=== PATIENT | male | born 1995 | race Caucasian/White ===

== ENCOUNTER 2024-06-23 09:56 | Emergency (ER) | payer BC, SELFPAY ==
[2024-06-23 10:11] VITALS: BP 143/85
--- NOTE | 2024-06-23 10:12 | ED.GENMED ---
ED Provider Triage
<Get Mckeon PA-C - Last Filed: 06/23/24 10:15>
-
Patient seen by provider in Triage?: Seen in Triage
Attestation: A medical screening examination has been initiated by a qualified medical provider. Based on the assessment performed at this time, it has been determined that an emergent medical condition may exist and the patient has been informed
that further medical evaluation and possible additional diagnostic testing may be needed.
HPI: 29-year-old male presents to the emergency department for evaluation of bilateral forearm swelling and discomfort for the past several days. Initially began on the left after performing bicep curls but now has progressed to the right. No
upper arm discomfort, no chest discomfort.
GENERAL: Alert , in no apparent distress
EYE: No visual abnormalities.
NECK: Trachea midline
ENT: No visible abnormalities.
LUNGS: No acute respiratory distress
NEUROLOGICAL: Alert and oriented
SKIN: Skin intact. No visible changes.
MUSCULOSKELETAL: Moving extremities normally
PSYCH: Normal and appropriate interaction.
This is a medical evaluation conducted in person to initiate diagnostic evaluation and provide initial therapeutics. Please see further documentation by the treating clinician.
History of Present Illness
<Get Mckeon PA-C - Last Filed: 06/23/24 10:15>
General
Chief Complaint: Musculo-Skeletal Complaint
Time Seen by Provider: 06/23/24 11:02
<Solis Newton Jr., PA-C - Last Filed: 06/23/24 16:01>
General
Source: patient and family
Exam Limitations: none
Nursing documentation reviewed up to this point in time: agreed with
History of Present Illness
History of Present Illness:
29-year-old male presenting to the emergency department today with concerns of swelling to bilateral upper extremities after working out a few days ago. Initially had mostly swelling throughout the right upper extremity but then now having swelling
to the left side. Denies any trouble urinating no chest pain or shortness of breath. Denies similar symptoms in the past. He has not lifted in a long period of time prior to a recent change.
Past History
<Get Mckeon PA-C - Last Filed: 06/23/24 10:15>
Past History
ED Past Medical History: None
ED Past Surgical History: None
Social History
Tobacco: Smoker
Alcohol: Occasional
Drug: None
Personal:
Living: with family
Employment: Employed
Family History
Family History: Other
Review of Systems
<AVIVA Babin Jr. Last Filed: 06/23/24 16:01>
Review of Systems
Allergies reviewed?: Yes
All Other Systems: ROS reviewed and negative except as documented in HPI and ROS
Phy Exam
<AVIVA Babin Jr. Last Filed: 06/23/24 16:01>
Physical Exam
Physical Exam:
GENERAL: Alert , in no apparent distress
EYE: pupils equal and reactive
NECK: Supple, no significant adenopathy.
ENT: o/p clr, mmm.
CARDIAC: Regular rate and rhythm .
LUNGS: Clear breath sounds bilaterally, no acute respiratory distress, no wheezes/rales/rhonchi
ABDOMEN: Soft, without focal tenderness, no r/g, no cvat
NEUROLOGICAL: Alert and oriented, no focal neuro deficits
SKIN: Warm and dry, skin intact.
MUSCULOSKELETAL: Nonpitting edema throughout the right upper extremity including the right upper arm and right lower arm +1. +1 edema mainly to the left forearm nonpitting. No redness or warmth good range of motion strength normal distal pulses
and cap refill well perfused.
PSYCH: Normal and appropriate interaction.
Course
<AVIVA Tobar Last Filed: 06/23/24 10:15>
Orders/Labs/Results
Orders:
Orders
06/23/24 10:21
CPK [Creatine Phosphokinase] Urgent
Complete Blood Count/With Diff Urgent
Comprehensive Metabolic Panel Urgent
06/23/24 11:28
Venous Doppler Upr Ext Bilat [US Periph Venous UPPER Ext [place]] Urgent
Comment:
Reason For Exam: arm swelling
06/23/24 11:34
0.9% Sodium Chloride 1000 ml [Nss] 1,000 ml IV BOLUS
06/23/24 13:34
0.9% Sodium Chloride 500 ml [Nss] 500 ml IV BOLUS
06/23/24 13:57
Urinalysis Reflex To Culture Urgent
Date Specimen was Collected: 06/23/24
Time Specimen was Collected: 13:33
06/23/24 15:16
CMP [Comprehensive Metabolic Panel] Urgent
Creatine Phosphokinase Urgent
Abnormal Lab Results
06/23/24 06/23/24
10:21 15:16
WBC 3.8 L 10^3/uL
(4.8-10.8)
MPV 10.5 H fL
(7.4-10.4)
Glucose 108 H mg/dl
(70-99)
AST 120 H U/L 106 H U/L
(17-59) (17-59)
ALT 178 H U/L 163 H U/L
(0-50) (0-50)
Creatine Kinase 3526 H U/L 3088 H U/L
(55-170) (55-170)
06/23/24 10:21
06/23/24 15:16
Vital Signs
Initial and Last Documented VS:
Initial Vital Signs
Temp Pulse Resp BP Pulse Ox
98.2 F 75 16 143/85 98
06/23/24 10:11 06/23/24 10:11 06/23/24 10:11 06/23/24 10:11 06/23/24 10:11
Last Documented Vital Signs
Temp Pulse Resp BP Pulse Ox
98.2 F 75 16 143/85 98
06/23/24 10:11 06/23/24 10:11 06/23/24 10:11 06/23/24 10:11 06/23/24 10:11
<Solis Newton Jr., PA-C - Last Filed: 06/23/24 16:01>
Orders/Labs/Results
Orders:
Orders
06/23/24 10:21
CPK [Creatine Phosphokinase] Urgent
Complete Blood Count/With Diff Urgent
Comprehensive Metabolic Panel Urgent
06/23/24 11:28
Venous Doppler Upr Ext Bilat [US Periph Venous UPPER Ext [place]] Urgent
Comment:
Reason For Exam: arm swelling
06/23/24 11:34
0.9% Sodium Chloride 1000 ml [Nss] 1,000 ml IV BOLUS
06/23/24 13:34
0.9% Sodium Chloride 500 ml [Nss] 500 ml IV BOLUS
06/23/24 13:57
Urinalysis Reflex To Culture Urgent
Date Specimen was Collected: 06/23/24
Time Specimen was Collected: 13:33
06/23/24 15:16
CMP [Comprehensive Metabolic Panel] Urgent
Creatine Phosphokinase Urgent
Abnormal Lab Results
06/23/24 06/23/24
10:21 15:16
WBC 3.8 L 10^3/uL
(4.8-10.8)
MPV 10.5 H fL
(7.4-10.4)
Glucose 108 H mg/dl
(70-99)
AST 120 H U/L 106 H U/L
(17-59) (17-59)
ALT 178 H U/L 163 H U/L
(0-50) (0-50)
Creatine Kinase 3526 H U/L 3088 H U/L
(55-170) (55-170)
06/23/24 10:21
06/23/24 15:16
Vital Signs
Initial and Last Documented VS:
Initial Vital Signs
Temp Pulse Resp BP Pulse Ox
98.2 F 75 16 143/85 98
06/23/24 10:11 06/23/24 10:11 06/23/24 10:11 06/23/24 10:11 06/23/24 10:11
Last Documented Vital Signs
Temp Pulse Resp BP Pulse Ox
98.2 F 75 16 143/85 98
06/23/24 10:11 06/23/24 10:11 06/23/24 10:11 06/23/24 10:11 06/23/24 10:11
<Solis Newton Jr., PA-C - Last Filed: 06/23/24 16:01>
MDM/Problems Addressed
MDM/Problems Addressed:
29-year-old male presenting to the emergency department today with concerns of arm swelling after lifting weights few days prior. Did see an orthopedic doctor they recommended an ultrasound has not gotten this at this point. Here does have
swelling to the right arm as well as the left ultrasounds were ordered for further assessment. Labs did show an elevated creatinine kinase likely representing some mild muscle breakdown also does have a transaminitis. Patient started on IV fluids.
Patient given a liter and a half of IV fluids then had labs rechecked with improved numbers. Patient stable for discharge at this time return precautions given.
<Solis Newton Jr., PA-C - Last Filed: 06/23/24 16:01>
*Critical Care Note
Total Time (30-74mins, 75-104mins- exclusive of procedures): Not Applicable
ED Attending Note
<Get Mckeon PA-C - Last Filed: 06/23/24 10:15>
-
Portions of this chart may have been created with voice recognition software.� Occasional wrong word or��sound alike� substitutions may have occurred due to the inherent limitations of voice recognition software.
Discharge Plan
Departure
Patient Disposition: Home (Routine Discharge)
Date of Disposition: 06/23/24
Time of Disposition: 16:00
Patient with high blood pressure during this ER visit?: No
Condition: Good
Covid-19: Not Applicable
Discharge Problem:
Injury of muscle, Elevated creatine kinase, Transaminitis
Instructions: Rhabdomyolysis
Prescriptions:
No Action
No Current Medications
0
Referrals:
David Quintana MD [Family Provider] -
Activity Restrictions/Additional Instructions:
You came to the emergency department today with concerns of swelling after weight lifting. You are found to have an elevated creatine kinase level. This was improving while here after fluids. Please stay very hydrated and also have your labs
repeated with your primary care doctor in the next week or so. Return for any worsening, new or concerning symptoms.
Interventions
Interventions:
*Risk Screen - Suicide Last Done: 06/23/24 10:11
*Neglect/Abuse Screening Last Done: 06/23/24 10:11
ED-Musculoskeletal Assessment Last Done: 06/23/24 12:40
Discharge Date and Time
Print Language: [place]
[2024-06-23 10:27] LABS: % Basophils 0.5 % (0-2); % Eosinophils 1.3 % (0-6); % Immature Granulocytes 0.5 % (0-0.5); % Lymphocytes 39.7 % (20.5-51.1); % Monocytes 6.1 % (1.7-9.3); % Neutrophils 51.9 % (42.2-75.2); Absolute Eosinophils 0.1 10^3/uL (0-0.7); Absolute Lymphocytes 1.5 10^3/uL (1.2-3.4); Absolute Monocytes 0.2 10^3/uL (0.1-0.6); Hematocrit 41.6 % (39.0-52.0); Hemoglobin 14.7 g/dL (13.0-18.0); Mean Corp Hgb Conc. 35.3 g/dL (33.0-37.0); Mean Corpuscular Hgb 30.7 pg (27.0-31.0); Mean Corpuscular Volume 86.8 fL (80.0-94.0); Mean Platelet Volume 10.5 fL (7.4-10.4); Nucleated Red Blood Cells % 0 % (-); Platelet Count 217 10^3/uL (130-400); Red Blood Cell Count 4.79 10^6/uL (4.70-6.10); Red Cell Dist. Width 11.8 % (11.5-14.5); White Blood Cell Count 3.8 10^3/uL (4.8-10.8)
[2024-06-23 10:43] LABS: ALT (SGPT) 178 U/L (0-50); AST (SGOT) 120 U/L (17-59); Albumin 4.9 g/dl (3.5-5.0); Alkaline Phosphatase 58 U/L (38-126); Blood Urea Nitrogen 12 mg/dl (9-20); Calcium 8.7 mg/dl (8.4-10.2); Carbon Dioxide 23 mmol/L (22-30); Chloride 106 mmol/L (98-107); Glucose 108 mg/dl (70-99); Potassium 4.2 mmol/L (3.5-5.1); Sodium 140 mmol/L (135-145); Total Bilirubin 0.8 mg/dl (0.2-1.3); Total Protein 7.5 g/dl (6.3-8.2); eGFR > 60.00
[2024-06-23 11:05] LABS: Creatine Phosphokinase 3526 U/L (55-170)
[2024-06-23] MEDS: NSS 1000 IV (12:40)
[2024-06-23] MEDS: NSS 500 IV (14:03)
[2024-06-23 14:16] LABS: Urine Albumin Negative (Neg - Trace); Urine Bilirubin Negative (Negative); Urine Character Clear (Clear); Urine Glucose Negative (Negative); Urine Ketone Negative (Negative); Urine Leukocyte Negative (Negative); Urine Nitrite Negative (Negative); Urine Occult Blood Negative (Negative); Urine Urobilinogen Negative (Neg - 1+); Urine pH 6.5 (5.0-9.0)
[2024-06-23 14:27] LABS: Urine Color Straw
[2024-06-23 15:44] LABS: ALT (SGPT) 163 U/L (0-50); AST (SGOT) 106 U/L (17-59); Albumin 4.8 g/dl (3.5-5.0); Alkaline Phosphatase 56 U/L (38-126); Blood Urea Nitrogen 11 mg/dl (9-20); Calcium 8.7 mg/dl (8.4-10.2); Carbon Dioxide 26 mmol/L (22-30); Chloride 105 mmol/L (98-107); Glucose 95 mg/dl (70-99); Potassium 4.2 mmol/L (3.5-5.1); Sodium 139 mmol/L (135-145); Total Bilirubin 1.3 mg/dl (0.2-1.3); Total Protein 7.3 g/dl (6.3-8.2); eGFR > 60.00
[2024-06-23 15:50] LABS: Creatine Phosphokinase 3088 U/L (55-170)
== END 2024-06-23 16:38 | disposition home or self-care (01) ==
LOC: EMR 09:56
PROVIDERS: Physician Assistant; EMERGENCY PHYSICIAN Emergency Medicine; FAMILY PHYSICIAN Family Medicine
DX: R74.01 Elevation of levels of liver transaminase levels (principal); S46.902A Unspecified injury of unspecified muscle, fascia and tendon at shoulder and upper arm level, left arm, initial encounter; S46.901A Unspecified injury of unspecified muscle, fascia and tendon at shoulder and upper arm level, right arm, initial encounter; X50.0XXA Overexertion from strenuous movement or load, initial encounter; F17.200 Nicotine dependence, unspecified, uncomplicated
CPT/HCPCS: 99284; 96360; 80053; 81003; 82550; 85025; 93970

== ENCOUNTER → 2024-07-10 07:17 | Outpatient (REF) | payer BC, SELFPAY | LOC: HWRAD 07:17 | PROVIDERS: ATTENDING PHYSICIAN Nurse Practitioner | DX: R74.8 Abnormal levels of other serum enzymes (principal) | CPT/HCPCS: 76700 ==